=== PATIENT | female | born 1990 | race Caucasian/White ===

== ENCOUNTER 2018-08-27 19:39 | Inpatient (IN) | payer OTHER ==
[~2018-08-27] VITALS: Ht 162.6 cm; Wt 96.2 kg
[2018-08-27 20:05] VITALS: BP 121/69
[2018-08-27] MEDS ORDERED: PREN1TAB80 PO (20:05)
[2018-08-27] MEDS ORDERED: RINGERS SOLUTION,LACTATED 1,000 ML IV PRN (21:18)
[2018-08-27] MEDS ORDERED: OXYTOCIN 30 UNITS/LACT RINGERS 500 ML IV ONE (21:18)
[2018-08-27] MEDS ORDERED: METHYLERGONOVINE MALEATE 0.2 MG/ML VIAL IM PRN (21:30)
[2018-08-27] MEDS ORDERED: MISOPROSTOL 25 MCG TABLET PO ONE (21:30)
[2018-08-27] MEDS ORDERED: FentaNYL CITRATE-PF 100 MCG/2 ML VIAL IVP PRN (21:30)
[2018-08-27] MEDS ORDERED: CITRIC ACID/SODIUM CITRATE 30 ML SOLUTION UDCUP PO PRN (21:30)
[2018-08-27] MEDS ORDERED: LIDOCAINE/PF 1% 30 ML VIAL INJ PRN (21:30)
[2018-08-27] MEDS ORDERED: METOCLOPRAMIDE HCL 5 MG/ML 2 ML VIAL IVP PRN (21:30)
[2018-08-27 21:45] LABS: BASOPHILS % (AUTO) 0.5 % (0.0-2.0); EOSINOPHILS % (AUTO) 0.6 % (1.0-6.0); HEMATOCRIT 35.1 % (36-46); HEMOGLOBIN 11.4 g/dL (12.0-16.0); LYMPHOCYTES # (AUTO) 2.5 K/uL (1.0-4.8); LYMPHOCYTES % (AUTO) 24.7 % (22.0-44.0); MEAN CORPUSCULAR HEMOGLOBIN 25.6 pg (26.0-34.0); MEAN CORPUSCULAR HGB CONC 32.4 G/dL (31.0-37.0); MEAN CORPUSCULAR VOLUME 79 fL (80-100); MONOCYTES # (AUTO) 0.8 K/uL (0.1-1.0); MONOCYTES % (AUTO) 8.3 % (2.0-9.0); NEUTROPHILS # (AUTO) 6.6 K/uL (1.8-7.7); NEUTROPHILS % (AUTO) 65.9 % (40.0-70.0); PLATELET COUNT (AUTO)-OB 219 K/uL (150-450); RED BLOOD CELL COUNT(AUTO) 4.45 MIL/uL (4.00-5.20); RED CELL DISTRIBUTION WIDTH 14.8 % (11.5-14.5)
[2018-08-27] MEDS: RINGERS SOLUTION,LACTATED 1,000 ML IV SCH (22:32)
[2018-08-27 22:58] VITALS: BP 126/58
[2018-08-27] MEDS ORDERED: OMEP10CA41 PO (23:02)
[2018-08-28] MEDS ORDERED: RINGERS SOLUTION,LACTATED 1,000 ML IV SCH (03:12)
[2018-08-28] MEDS ORDERED: MISOPROSTOL 25 MCG TABLET PO ONE ×2 (03:15→08:00)
[2018-08-28] MEDS ORDERED: LIOTHYRONINE SODIUM 5 MCG TABLET PO ONE (08:00)
[2018-08-28] MEDS ORDERED: LIOTHYRONINE SODIUM 25 MCG TABLET PO ONE (08:00)
[2018-08-28] MEDS ORDERED: OXYGEN THERAPY IH SCH (08:00)
[2018-08-28] MEDS ORDERED: OXYTOCIN 30 UNITS/LACT RINGERS 500 ML IV PRN (11:48)
[2018-08-28] MEDS ORDERED: OMEP20 PO (11:54)
[2018-08-28] MEDS: RINGERS SOLUTION,LACTATED 1,000 ML IV SCH ×2 (14:35→17:16)
[2018-08-28] MEDS ORDERED: ROPIVACAINE HCL/PF 0.2% 100 ML ED ONE (16:20)
[2018-08-28] MEDS ORDERED: ROPIVACAINE HCL/PF 0.2% 100 ML ED PRN (16:44)
[2018-08-28] MEDS ORDERED: NALBUPHINE HCL 10 MG/ML VIAL IVP PRN (16:45)
[2018-08-28] MEDS ORDERED: ONDANSETRON HCL 4 MG/2 ML VIAL IVP PRN (16:45)
[2018-08-28] MEDS ORDERED: DiphenhydrAMINE HCL 50 MG/ML VIAL IVP PRN (16:45)
[2018-08-28] MEDS ORDERED: GLYCERIN/WITCH HAZEL LEAF 40 PADS JAR TP PRN (20:45)
[2018-08-28] MEDS ORDERED: LIDOCAINE/PF 1% 30 ML VIAL INJ PRN (20:45)
[2018-08-28] MEDS ORDERED: OXYTOCIN 30 UNITS/LACT RINGERS 500 ML IV ONE (20:45)
[2018-08-28] MEDS ORDERED: BENZOCAINE 20%/MENTHOL 56 GM SPRAY CANISTER TP PRN (20:45)
[2018-08-28] MEDS ORDERED: OxyCODONE HCL/ACETAMINOPHEN 5-325 MG TABLET PO PRN ×2 (20:45)
[2018-08-28] MEDS ORDERED: LANOLIN 7 GM OINTMENT TP PRN (20:45)
[2018-08-28] MEDS ORDERED: MAGNESIUM HYDROXIDE SUSPENSION 30 ML UDCUP PO PRN (20:45)
[2018-08-28] MEDS: IBUPROFEN 800 MG TABLET PO PRN (22:53)
[2018-08-29 06:12] LABS: BASOPHILS % (AUTO) 0.1 % (0.0-2.0); EOSINOPHILS % (AUTO) 0.4 % (1.0-6.0); HEMATOCRIT 32.5 % (36-46); HEMOGLOBIN 10.5 g/dL (12.0-16.0); LYMPHOCYTES # (AUTO) 2.3 K/uL (1.0-4.8); LYMPHOCYTES % (AUTO) 16.1 % (22.0-44.0); MEAN CORPUSCULAR HEMOGLOBIN 25.8 pg (26.0-34.0); MEAN CORPUSCULAR HGB CONC 32.4 G/dL (31.0-37.0); MEAN CORPUSCULAR VOLUME 80 fL (80-100); MONOCYTES # (AUTO) 1.1 K/uL (0.1-1.0); MONOCYTES % (AUTO) 7.7 % (2.0-9.0); NEUTROPHILS # (AUTO) 10.7 K/uL (1.8-7.7); NEUTROPHILS % (AUTO) 75.7 % (40.0-70.0); PLATELET COUNT (AUTO)-OB 195 K/uL (150-450); RED BLOOD CELL COUNT(AUTO) 4.07 MIL/uL (4.00-5.20); RED CELL DISTRIBUTION WIDTH 14.7 % (11.5-14.5)
[2018-08-29] MEDS: IBUPROFEN 800 MG TABLET PO PRN ×3 (06:31→19:50)
[2018-08-29] MEDS ORDERED: IBUP-2071 PO (08:45)
[2018-08-29] MEDS ORDERED: DSS100 PO (08:46)
[2018-08-29] MEDS ORDERED: MEASLES/MUMPS/RUBELLA VACCINE, LIVE 0.5 ML/VIAL SQ ONE (20:00)
== END 2018-08-29 21:10 | disposition home or self-care (01) | DRG 807 ==
LOC: 4S 19:39 → OBSVTOIN 19:39
PROVIDERS: ADMIT Obstetrics & Gynecology; ATTEND Obstetrics & Gynecology
PROC: 10E0XZZ Delivery of Products of Conception, External Approach (ICD-10-PCS; principal; 2018-08-28)
PROC: 0W8NXZZ Division of Female Perineum, External Approach (ICD-10-PCS; 2018-08-28)
PROC: 3E0R3BZ Introduction of Anesthetic Agent into Spinal Canal, Percutaneous Approach (ICD-10-PCS; 2018-08-28)
PROC: 3E0234Z Introduction of Serum, Toxoid and Vaccine into Muscle, Percutaneous Approach (ICD-10-PCS; 2018-08-29)
DX: O76 Abnormality in fetal heart rate and rhythm complicating labor and delivery (principal); Z37.0 Single live birth; Z3A.40 40 weeks gestation of pregnancy; Z23 Encounter for immunization
CPT/HCPCS: 86850; 86900; 86901; 90707; J2590; J2795; J7120